=== PATIENT | female | born 1960 | race African-American/Black ===

== ENCOUNTER 2016-09-06 13:14 | Emergency (ER) | payer OTHER ==
[~2016-09-06] VITALS: Ht 152.4 cm; Wt 98.4 kg
[~2016-09-06 13:14] MED LIST: ALBU2.5V14 IH; BENZ200C39 PO; CETI10CA PO; CHOL1CRY3 MC; FERR325T3 PO; FLUT12AE2 IH; GABA300S PO; GLIP-24 PO; HYDR-2666 PO; HYDR-971 PO; IBUP-1007 PO; LEVO50TA5 PO; LISI-334 PO; METF500T4 PO; METH-38 PO; MOME17SP NS; MONT10TA6 PO; MULT-212 PO; OMEP20CA5 PO; OXYB5SYR2 PO; PANT40TA5 PO; TRAM50TA PO; TRIA1TAB3 PO
[2016-09-06] MEDS ORDERED: KETOROLAC TROMETHAMINE 60 MG/2 ML INJ. IM ONE (13:45)
[2016-09-06] MEDS ORDERED: LIDO700A4 TP (13:55)
--- NOTE | 2016-09-06 13:55 | PHYS DOC ---
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 Patient states the pain starts from the knee and radiates to her low back. Patient denies any trauma. She states she follows up with Dr. Valera who has her on gabapentin, muscle relaxers 750 mg, and ibuprofen 600 mg. Patient denies any trauma. Denies any loss of bowel bladder function. PCP Dr. Valera Review of Systems Review of Systems Constitutional: Denies fever or chills [] Eyes: Denies change in visual acuity, redness, or eye pain [] HENT: Denies nasal congestion or sore throat [] Musculoskeletal: Exacerbation of chronic right leg pain Integument: Denies rash or skin lesions [] Neurologic: Denies headache, focal weakness or sensory changes [] Endocrine: Denies polyuria or polydipsia [] Current Medications Current Medications Current Medications Medications (Trade) Dose Ordered Sig/Alma Start Time Stop Time Status Last Admin Dose Admin Ketorolac Tromethamine (Toradol Im) 60 mg 1X ONCE 09/06/16 13:45 09/06/16 13:47 DC Allergies Allergies Allergies Coded Allergies Type Severity Reaction Last Updated Verified [place] And Derivatives Allergy Intermediate Swelling 08/19/13 Yes Egg Derived Allergy Intermediate 10/26/14 Yes Penicillins Allergy Intermediate 10/26/14 No fish derived Allergy Intermediate swelling 08/26/13 Yes peanut Allergy Intermediate 10/26/14 No shellfish derived Allergy Intermediate Itching and Swelling 08/19/13 Yes Physical Exam Physical Exam Constitutional: Well developed, well nourished, no acute distress, non-toxic appearance. [] HENT: Normocephalic, atraumatic, bilateral external ears normal, oropharynx moist, no oral exudates, nose normal. [] Eyes: PERRLA, EOMI, conjunctiva normal, no discharge. [] Skin: Warm, dry, no erythema, no rash. [] Back: No tenderness, no CVA tenderness. [] Extremities: Diffuse musculoskeletal tenderness to the right thigh, no cyanosis , no clubbing, ROM intact, no edema. [] Neurologic: Alert and oriented X 3, normal motor function, normal sensory function, no focal deficits noted. [] Psychologic: Affect normal, judgement normal, mood normal. [] EKG EKG [] Radiology/Procedures Radiology/Procedures [] Course & Med Decision Making Course & Med Decision Making Pertinent Labs and Imaging studies reviewed. (See chart for details) Patient is in the ED with exacerbation of chronic pain to the right thigh. She was discharged with Lidoderm patches. She already has gabapentin, I suspect Robaxin 750 mg from the conversation we had, and ibuprofen. She has good follow- up. Recommended she sees her doctor in one week. Dragon Disclaimer Dragon Disclaimer This electronic medical record was generated, in whole or in part, using a voice recognition dictation system. Departure Departure Impression: Primary Impression: Lower extremity pain, right Disposition: HOME, SELF-CARE Condition: STABLE Referrals: OMAYRA SINHA MD (PCP) Follow-up with your own doctor in the next 7 days Patient Instructions: Musculoskeletal Pain Additional Instructions: You were seen for chronic lower leg pain. Continue taking your prescribed medicines as ordered. Contact your doctor and follow-up in the next 7 days. Use the pain patch as ordered. Scripts Lidocaine (LIDODERM) 700 Mg Adh..patch 1 PATCH TP DAILY, #30 PATCH 1 Refill Prov: RUDY CEBALLOS APRN 09/06/16 RUDY CEBALLOS APRN September 06, 2016 13:55
[2016-09-06 14:05] VITALS: BP 130/61
[2016-09-06] MEDS ORDERED: MORPHINE SULFATE 10 MG/ML VIAL. IM ONE (14:30)
== END 2016-09-06 14:50 | disposition home or self-care (01) ==
LOC: ER 13:14
DX: G89.29 Other chronic pain (principal); M79.604 Pain in right leg; J45.909 Unspecified asthma, uncomplicated; K21.9 Gastro-esophageal reflux disease without esophagitis; I10 Essential (primary) hypertension; E11.9 Type 2 diabetes mellitus without complications; Z91.012 Allergy to eggs; Z91.010 Allergy to peanuts; Z88.0 Allergy status to penicillin; Z91.013 Allergy to seafood; Z91.018 Allergy to other foods
CPT/HCPCS: 99283

== ENCOUNTER 2016-10-30 20:08 | Emergency (ER) | payer OTHER ==
[~2016-10-30] VITALS: Ht 152.4 cm; Wt 100.7 kg
[~2016-10-30 20:08] MED LIST changes: -BENZ200C39 PO; +BENZ200C47 PO; -HYDR-2666 PO; +HYDR-2758 PO; +LIDO700A4 TP
[2016-10-30 20:14] VITALS: BP 180/81
[2016-10-30] MEDS ORDERED: MORPHINE SULFATE 10 MG/ML VIAL. IM ONE (22:00)
[2016-10-30] MEDS ORDERED: predniSONE 20 MG TABLET PO ONE (22:00)
[2016-10-30] MEDS ORDERED: HYDR-971 PO (23:04)
[2016-10-30] MEDS ORDERED: METH4TAB2 PO (23:04)
--- NOTE | 2016-10-30 23:04 | PHYS DOC ---
Past Medical History Past Medical History: Asthma, Diabetes-Type II, Hypertension, Hypothyroid, Other Additional Past Medical Histor: NEUROPATHY,CHRONIC BACK PAIN Past Surgical History: , Other Additional Past Surgical Histo: THYROIDECTOMY Alcohol Use: None Drug Use: None Adult General Chief Complaint Chief Complaint: BACK PAIN - NO INJURY HPI HPI Patient is a 56 year old female who presents with complaint of lower show any pain. Patient states that she has history of sciatica and has been having worsening symptoms over the past 24 hours. Patient states that the pain radiates from her buttock down through her right lower extremity towards her toes. Patient also states that she has noticed swelling in her lower extremities. Pain extends along the posterior aspect of her legs and also on the anterior side. Patient rates pain currently is 10 out of 10. Patient states that she takes gabapentin, ibuprofen, and a muscle relaxant at home, however this has not relieved her symptoms. Patient has history of chronic diabetic neuropathy. Patient denies any fevers, chest pain, shortness of breath, nausea, or vomiting. Patient denies any loss of bowel or bladder control or saddle anesthesia. Patient states that she is having difficulty finding position of comfort but does state that weaning off of her right side seems to help with her symptoms. Review of Systems Review of Systems Constitutional: Denies fever or chills [] Eyes: Denies change in visual acuity, redness, or eye pain [] HENT: Denies nasal congestion or sore throat [] Respiratory: Denies cough or shortness of breath [] Cardiovascular: Denies chest pain or edema [] GI: Denies abdominal pain, nausea, vomiting, bloody stools or diarrhea [] : Denies dysuria or hematuria [] Musculoskeletal: Bilateral lower extremity pain, right greater than left [] Integument: Denies rash or skin lesions [] Neurologic: Neuropathy [] Current Medications Current Medications Current Medications Medications (Trade) Dose Ordered Sig/Alma Start Time Stop Time Status Last Admin Dose Admin Morphine Sulfate 5 mg 1X ONCE 10/30/16 22:00 10/30/16 22:01 DC 10/30/16 22:10 5 MG Prednisone (Prednisone) 50 mg 1X ONCE 10/30/16 22:00 10/30/16 22:01 DC 10/30/16 22:09 50 MG Allergies Allergies Allergies Coded Allergies Type Severity Reaction Last Updated Verified Fish Containing Products Allergy Intermediate 10/30/16 Yes egg Allergy Intermediate 10/30/16 Yes shellfish derived Allergy Intermediate 10/30/16 Yes Physical Exam Physical Exam Constitutional: Alert, afebrile, appears in moderate discomfort [] HENT: Normocephalic, atraumatic, bilateral external ears normal, oropharynx moist, no oral exudates, nose normal. [] Eyes: PERRLA, EOMI, conjunctiva normal, no discharge. [] Neck: Normal range of motion, no tenderness, supple, no stridor. [] Cardiovascular:Heart rate regular rhythm, no murmur [] Lungs & Thorax: Bilateral breath sounds clear to auscultation [] Abdomen: Bowel sounds normal, soft, no tenderness, no masses, no pulsatile masses. [] Skin: Warm, dry, no erythema, no rash. [] Back: No tenderness, no CVA tenderness. [] Extremities: Right-sided posterior tenderness to palpation along thigh and lower leg, no obvious deformities present, no redness or edema present, pulses 2 + distally, foot is warm. [] Neurologic: Alert and oriented X 3, normal motor function, normal sensory function, no focal deficits noted. [] Current Patient Data Vital Signs Vital Signs Date Time Temp Pulse Resp B/P (MAP) Pulse Ox O2 Delivery O2 Flow Rate FiO2 10/30/16 22:10 Room Air 10/30/16 20:14 98.4 74 20 180/81 (114) 99 98.4 Lab Values Laboratory Tests Test 10/30/16 22:07 Glucose (Fingerstick) 221 mg/dL (70-99) H EKG EKG Not performed [] Radiology/Procedures Radiology/Procedures Not performed [] Course & Med Decision Making Course & Med Decision Making Pertinent Labs and Imaging studies reviewed. (See chart for details) The patient's exam showed no appreciable swelling in the lower extremities. Patient's pulses were normal in both feet. The patient's symptoms appear to be an exacerbation of patient's sciatic pain. Patient was given IM morphine and was started on prednisone in the emergency department. On reevaluation, patient states her symptoms are improving at this time. Patient will continue on hydrocodone and Medrol Dosepak for outpatient treatment. Advised patient follow- up in [address] Yates for reevaluation and advised return emergency department for any worsening symptoms. Patient voiced understanding and in agreement with treatment plan. Dragon Disclaimer Dragon Disclaimer This electronic medical record was generated, in whole or in part, using a voice recognition dictation system. Departure Departure Impression: Primary Impression: Sciatica Disposition: 01 HOME, SELF-CARE Condition: IMPROVED Referrals: OMAYRA YATES MD (PCP) Patient Instructions: Sciatica Additional Instructions: Follow-up with Dr. Yates in the next 3 days for reevaluation. Return to emergency department for any worsening symptoms. Scripts Hydrocodone/Apap 5-325 (NORCO 5-325 TABLET) 1 Each Tablet 1-2 TAB PO Q4-6HRS Y for PAIN, #20 TAB Prov: HARJIT PHAN MD 10/30/16 Methylprednisolone (MEDROL) 4 Mg Tab.ds.pk 1 PKG PO UD, #1 PKG Prov: HARJIT PHAN MD 10/30/16 Problem Qualifiers Primary Impression: Sciatica Laterality: right Qualified Codes: M54.31 - Sciatica, right side HARJIT PHAN MD Oct 30, 2016 23:04
== END 2016-10-30 23:11 | disposition home or self-care (01) ==
LOC: ER 20:08 → MERGE 20:08 → ER 23:11
DX: M54.31 Sciatica, right side (principal); G89.29 Other chronic pain; E11.40 Type 2 diabetes mellitus with diabetic neuropathy, unspecified; I10 Essential (primary) hypertension; J45.909 Unspecified asthma, uncomplicated; E89.0 Postprocedural hypothyroidism; Z91.012 Allergy to eggs; Z91.013 Allergy to seafood
CPT/HCPCS: 82962; 96372; 99283; J2270; J7512

== ENCOUNTER → 2016-11-02 | Outpatient (CLI) | payer OTHER ==
[~2016-11-02] MED LIST changes: +METH4TAB2 PO
--- NOTE | 2016-11-02 15:47 | KCIC ---
MR LUMBAR SPINE HISTORY: Acute right knee. Low back pain COMPARISON: CT lumbar spine from October 26, 2014 Technique: Sagittal T2, sagittal STIR, and sagittal T1-weighted images were obtained. Additional axial T1 and T2 weighted imaging was also performed. FINDINGS: There is subtle retrolisthesis of L5 on S1. Alignment is otherwise within normal limits. There is no compression fracture or deformity. Bone marrow signal is within normal limits apart from hemangiomas at L3 T12. The conus terminates normally at the level of L2-L3. Visualized intra-abdominal contents are within normal limits. At L5-S1 there is retrolisthesis of L5 on S1. There is also moderate disc height loss and a broad-based disc protrusion. This causes mass effect upon the descending right S1 nerve probable for right S1 radiculopathy. There is also moderate bilateral neural foraminal narrowing from disc height loss and foraminal extension of the disc. At L4-L5 there is mild disc height loss and a broad-based disc bulge causing mild lateral recess stenosis bilaterally. There is also mild facet arthropathy. The remaining intervertebral disc levels are well maintained. IMPRESSION: Degenerative disc disease greatest at L5-S1 where there is mass effect upon the right S1 nerve in the lateral recess. Correlate for right S1 radiculopathy symptoms. Details as above. Electronically signed by: Jeremias Iglesias MD (11/02/2016 3:44 PM)
== END | disposition home or self-care (01) ==
LOC: KCIC MRI 13:53
PROVIDERS: ATTEND Orthopaedic Surgery
DX: M51.37 Other intervertebral disc degeneration, lumbosacral region (principal); M25.561 Pain in right knee
CPT/HCPCS: 72148

== ENCOUNTER → 2016-11-07 | Outpatient (CLI) | payer OTHER ==
--- NOTE | 2016-11-08 10:56 | KCIC ---
EXAM: Bilateral screening mammogram. HISTORY: 56-year-old female presents for screening mammography. TECHNIQUE: Full-field digital craniocaudal and mediolateral oblique views of both breasts are obtained for evaluation. Computer aided detection with [employer] software version 9.3 was applied. COMPARISON: 06/26/2013 BREAST PARENCHYMAL DENSITY: Level B - Scattered fibroglandular densities. FINDINGS: There is increased nodularity within the 4:00 subareolar aspect of the right breast. There is a stable nodule within the 4:30 o'clock position of the right breast at mid depth. There is no suspicious calcification or architectural distortion within either breast. IMPRESSION: BI-RADS Category 0: Additional imaging needed. RECOMMENDATION: Further evaluation with a right breast sonogram is recommended to assess increasing nodularity within the 4:00 subareolar location. The patient will be contacted to return for additional imaging. If your mammogram demonstrates that you have dense breast tissue, which could hide abnormalities, and if you have other risk factors for breast cancer that have been identified, you might benefit from supplemental screening tests that may be suggested by your ordering physician. Dense breast tissue, in and of itself, is a relatively common condition. This information is not provided to cause undue concern, but rather to raise your awareness and to promote discussion with your physician regarding the presence of other risk factors, in addition to dense breast tissue. A report of your mammography results will be sent to you and your physician. You should contact your physician if you have any questions or concerns regarding this report. Mammography is a sensitive method for finding small breast cancers, but it does not detect them all and is not a substitute for careful clinical examination. A negative mammogram does not negate a clinically suspicious finding and should not result in delay in biopsying a clinically suspicious abnormality. PQRS compliance statement - Patient information was entered into a reminder system with a target due date for the next mammogram. "Our facility is accredited by the [employer] Mammography [employer]." Electronically signed by: Ling Armstrong MD (11/08/2016 10:53 AM) [facility]
== END | disposition home or self-care (01) ==
LOC: KCIC MAMMO 15:29
PROVIDERS: ATTEND Family Medicine
DX: Z12.31 Encounter for screening mammogram for malignant neoplasm of breast (principal)
CPT/HCPCS: G0202; 77067

== ENCOUNTER → 2016-11-12 | Outpatient (CLI) | payer OTHER ==
--- NOTE | 2016-11-12 16:30 | KCIC ---
Right breast ultrasound: Reason for examination: Nodular density on screening mammogram. Comparison to mammographic exam dated 2016. Ultrasound examination of the right breast was performed with attention to the area of mammographic concern in the right axilla. In the 3:00 position 3 cm from the nipple and. Correspond to the area of mammographic concern, there is a 7.7 x 5.4 mm hypoechoic lesion with a slightly lobulated irregular contour. This may represent papilloma. Further evaluation with ultrasound biopsy is recommended. No other focal lesions are seen. No abnormal appearing lymph nodes are seen in the axilla. IMPRESSION: 7.7 x 5.4 mm nodule at the 3:00 position of the right breast. Recommend further evaluation with ultrasound-guided biopsy. BI-RADS Category 4: Suspicious. These findings were discussed with the patient and a message was left for the medical insurance coder of Dr. Yates on 11/12/2016 at 2395. "Our facility is accredited by the [employer] Mammography Program." This patient's information has been entered into a reminder system for the patient to be notified with the results of her examination and a target date for the next mammogram. Electronically signed by: Susan Cevallos MD (11/12/2016 4:27 PM) [facility]
== END | disposition home or self-care (01) ==
LOC: KCIC US 10:07
PROVIDERS: ATTEND Family Medicine
DX: R92.8 Other abnormal and inconclusive findings on diagnostic imaging of breast (principal)
CPT/HCPCS: 76641

== ENCOUNTER → 2016-11-20 | Outpatient (CLI) | payer OTHER ==
[~2016-11-20] VITALS: Ht 152.4 cm; Wt 99.8 kg
[2016-11-20 08:56] VITALS: BP 139/64
--- NOTE | 2016-11-20 12:09 | RAD ---
Indication suspect mass right breast. Note is made of the screening examination of the breasts 11/07/2016 and the diagnostic examination targeted to the right breast 11/12/2016. Image guided biopsy was discussed with the patient. The risks of infection and bleeding were outlined. Small possibility of pneumothorax was also discussed. The patient understood the risks associated with the procedure and wished to proceed. The well-defined mass at 3:00 position of the right breast, approximately 2 cm from the nipple, was reproduced. [employer] ultrasound images were saved. The skin was prepped and draped in the routine fashion. Local anesthesia was accomplished with 1% lidocaine. Under ultrasound guidance a coaxial 14-gauge biopsy system was utilized. 4 core samples were obtained. (After the second sample the target mass was essentially gone suggesting that much of target mass with cystic in nature). At the completion of the biopsy procedure a clip was placed at the biopsy site. The retrieved tissue was placed in formaldehyde and transferred to pathology. The patient tolerated the procedure unremarkably. At the completion of the procedure and the clip deployment the patient was transferred to a dedicated mammographic suite and conventional mammographic images were obtained. Clip is noted in the periareolar position of the breast and appears appropriately positioned. The biopsy site was dressed in the routine fashion and the patient discharged with appropriate instructions. IMPRESSION: Successful ultrasound-guided biopsy of mass in the right breast MTDD
--- NOTE | 2016-11-21 16:32 | PATHOLOGY ---
PATHOLOGY REPORT * * * * * * * * FINAL DIAGNOSIS: Breast tissue, right breast needle biopsies: - Fibrocystic changes with the following components: - Cystic change. - Apocrine metaplasia. - Stromal fibrosis. - Mild duct ectasia. (JPM:linh; 11/21/2016) COMMENT: There is no evidence of malignancy. REPORT ELECTRONICALLY SIGNED BY: Ty Faustin M.D. DATE/TIME: 11/21/2016 16:32 * * * * * * * * GROSS PATHOLOGY: Received in formalin labeled "Sg Mcbride, right breast," are multiple needle cores of yellow-luque fibrofatty tissue measuring 0.5 x 0.4 x 0.2 cm in aggregate dimensions. The tissue is submitted in its entirety in cassette A1. The cold ischemic time is 5minutes. The total formalin fixation time is 12 hours and 5 minutes. (JPM; 11/20/16) INITIAL CPT CODE(S): A; 47494 Professional services performed by [facility] [place] [address] Technical services performed by [facility] at [address] [place] [address] [address], [place] [address]. SPECIMEN(S) RECEIVED: A.Right breast samples CLINICAL HISTORY: Right breast mass PATIENT: SG MCBRIDE /AGE: 206/24/1960 (Age: 56) PATIENT #: [id number] ALT CASE #: SPECIMEN COLLECTION DATE: 11/20/2016 SPECIMEN RECEIVED DATE: 11/20/2016 [facility] - [address] [place] [address] - PHONE: [phone] * * * END OF REPORT * * *
== END | disposition home or self-care (01) ==
LOC: US 08:44
PROVIDERS: ATTEND Family Medicine
DX: N63 Unspecified lump in breast (principal)
CPT/HCPCS: 19081; 76942; C1713; G0206; 88305; 77065

== ENCOUNTER 2019-07-03 11:53 | Emergency (ER) | payer MEDICAID, OTHER ==
[~2019-07-03] VITALS: Ht 152.4 cm; Wt 93.7 kg
[~2019-07-03 11:53] MED LIST changes: -HYDR-2758 PO; +HYDR-2761 PO; +HYDR-3164 PO; -HYDR-971 PO; +METF500T16 PO; -METF500T4 PO; +MONT10TA49 PO; -MONT10TA6 PO; -PANT40TA5 PO; +PANT40TA77 PO
[2019-07-03] MEDS ORDERED: cloNIDine HCL 0.1 MG TABLET PO ONE (12:45)
--- NOTE | 2019-07-03 13:16 | RAD ---
CHEST PA LATERAL History: Cough. Asthma history. Comparison: None. Findings: Patchy bibasilar opacities. No pleural effusion. No pneumothorax. Normal heart size. Impression: 1. Patchy bibasilar opacities, most likely atelectasis. Electronically signed by: Remigio Alejo DO (07/03/2019 1:14 PM) [id number]
[2019-07-03 13:21] LABS: INFLUENZA A PATIENT POSITIVE (NEGATIVE); INFLUENZA B PATIENT NEGATIVE (NEGATIVE)
--- NOTE | 2019-07-03 13:31 | PHYS DOC ---
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 Patient reports being exposed to influenza. Grandson is at [facility] admitted for influenza. Review of Systems Review of Systems Constitutional: Reports fever Eyes: Denies change in visual acuity, redness, or eye pain [] HENT: Reports nasal congestion denies sore throat [] Respiratory: Reports cough, denies shortness of breath [] Cardiovascular: No additional information not addressed in HPI [] GI: Denies abdominal pain, nausea, vomiting, bloody stools or diarrhea [] : Denies dysuria or hematuria [] Musculoskeletal: Denies back pain or joint pain [] Integument: Denies rash or skin lesions [] Neurologic: Denies headache, focal weakness or sensory changes [] All other systems were reviewed and found to be within normal limits, except as documented in this note. Current Medications Current Medications Current Medications Medications (Trade) Dose Ordered Sig/Alma Start Time Stop Time Status Last Admin Dose Admin Clonidine HCl (Catapres) 0.2 mg 1X ONCE 07/03/19 12:45 07/03/19 12:47 DC 07/03/19 12:58 0.2 MG Allergies Allergies Allergies Coded Allergies Type Severity Reaction Last Updated Verified [place] And Derivatives Allergy Intermediate Swelling 08/19/13 Yes Egg Derived Allergy Intermediate 10/26/14 Yes Fish Containing Products Allergy Intermediate 10/31/16 Yes Penicillins Allergy Intermediate 10/26/14 No egg Allergy Intermediate 10/31/16 Yes fish derived Allergy Intermediate swelling 08/26/13 Yes peanut Allergy Intermediate 10/26/14 No shellfish derived Allergy Intermediate Itching and Swelling 08/19/13 Yes Physical Exam Physical Exam Constitutional: Well developed, well nourished, no acute distress, non-toxic appearance. [] HENT: Normocephalic, atraumatic, bilateral external ears normal, oropharynx moist, no oral exudates, nose normal. [] Eyes: PERRLA, EOMI, conjunctiva normal, no discharge. [] Neck: Normal range of motion, no tenderness, supple, no stridor. [] Cardiovascular:Heart rate regular rhythm, no murmur [] Lungs & Thorax: Bilateral breath sounds clear to auscultation [] Abdomen: Bowel sounds normal, soft, no tenderness, no masses, no pulsatile masses. [] Skin: Warm, dry, no erythema, no rash. [] Back: No tenderness, no CVA tenderness. [] Extremities: No tenderness, no cyanosis, no clubbing, ROM intact, no edema. [] Neurologic: Alert and oriented X 3, normal motor function, normal sensory function, no focal deficits noted. [] Psychologic: Affect normal, judgement normal, mood normal. [] Current Patient Data Vital Signs Vital Signs Date Time Temp Pulse Resp B/P (MAP) Pulse Ox O2 Delivery O2 Flow Rate FiO2 07/03/19 12:58 72 175/78 07/03/19 12:23 98.5 20 96 Room Air 98.5 Lab Values Laboratory Tests Test 07/03/19 12:31 Influenza Type A Antigen Positive (NEGATIVE) Influenza Type B Antigen Negative (NEGATIVE) EKG EKG [] Radiology/Procedures Radiology/Procedures []PROCEDURE: CHEST PA & LATERAL CHEST PA LATERAL History: Cough. Asthma history. Comparison: None. Findings: Patchy bibasilar opacities. No pleural effusion. No pneumothorax. Normal heart size. Impression: 1. Patchy bibasilar opacities, most likely atelectasis. Electronically signed by: Remigio Taylor DO (07/03/2019 1:14 PM) [id number] DICTATED and SIGNED BY: REMIGIO TAYLOR DO DATE: 07/03/19 1314 Course & Med Decision Making Course & Med Decision Making Pertinent Labs and Imaging studies reviewed. (See chart for details) This is a 59-year-old female patient presenting to the ED today with flulike symptoms. Positive for influenza A, chest x-ray is negative. Patient has been ill for 3 days. Supportive care measures recommended. Dragon Disclaimer Dragon Disclaimer This electronic medical record was generated, in whole or in part, using a voice recognition dictation system. Departure Departure Impression: Primary Impression: Influenza Additional Impressions: Fever Cough Disposition: 01 HOME, SELF-CARE Condition: STABLE Referrals: OMAYRA SINHA MD (PCP) follow up in 1-2 weeks Patient Instructions: Cough, Adult, [id number], Fever, Adult, Influenza A (H1N1) Additional Instructions: You tested positive for influenza A. You have been ill for more than 2 days. Supportive care measures are recommended at this point, this includes pushing fluids, taking Tylenol/Motrin for pain or fever, resting, follow-up with your doctor in 1-2 weeks. Problem Qualifiers Additional Impressions: Fever Fever type: unspecified Qualified Codes: R50.9 - Fever, unspecified EDISARUDY APRN Jul 03, 2019 13:31
[2019-07-03 13:48] VITALS: BP 170/73
== END 2019-07-03 13:48 | disposition home or self-care (01) ==
LOC: ER 11:53
DX: J10.1 Influenza due to other identified influenza virus with other respiratory manifestations (principal); R05 Cough; R09.81 Nasal congestion; J45.909 Unspecified asthma, uncomplicated; E11.9 Type 2 diabetes mellitus without complications; K21.9 Gastro-esophageal reflux disease without esophagitis; E03.9 Hypothyroidism, unspecified; I10 Essential (primary) hypertension; I95.89 Other hypotension; Z98.890 Other specified postprocedural states; Z91.018 Allergy to other foods; Z91.013 Allergy to seafood; Z91.010 Allergy to peanuts; Z91.012 Allergy to eggs
CPT/HCPCS: 71046; 87804; 99284

== ENCOUNTER → 2020-12-29 | Day surgery (SDC) | payer OTHER ==
[~2020-12-29] VITALS: Ht 152.4 cm; Wt 81.0 kg
[~2020-12-29] MED LIST changes: +IV RINGERS,LACTATED 1000ML 1,000 ML IV SCH; +LIDOCAINE 2% PF 5 ML VIAL. ONE; -LISI-334 PO; +LISI20TA18 PO; +PROPOFOL 10 MG/ML (20ML) VIAL. IV ONE
[2020-12-29 11:13] VITALS: BP 151/73
--- NOTE | 2020-12-29 12:04 | PREOP HP ---
DATE OF SERVICE: 12/29/2020 REFERRING PHYSICIAN: Khalida Yates MD PRIMARY CARE PHYSICIAN: Khalida Yates MD REASON FOR PROCEDURE: Colorectal cancer screening and dysphagia. HISTORY OF PRESENT ILLNESS: This is a 60-year-old female who presents for dysphagia and colorectal cancer screening. She denies a family history of colon cancer and reports 1-2 stools a day. ALLERGIES: MAR reviewed. PAST MEDICAL HISTORY: Reflux. FAMILY HISTORY: Unknown. SOCIAL HISTORY: She denies tobacco, alcohol or IV drug abuse. MEDICATIONS: MAR reviewed. REVIEW OF SYSTEMS: A 13-point review of systems was done and is positive as per HPI, otherwise negative. PHYSICAL EXAMINATION: GENERAL: She is a well-developed, well-nourished female in no apparent distress. HEENT: Oropharynx is clear. CARDIOVASCULAR: S1, S2. LUNGS: Clear. ABDOMEN: Normoactive bowel sounds. Soft, nontender, nondistended. EXTREMITIES: No edema. NEUROLOGICAL: Alert and oriented x 3. ASSESSMENT AND PLAN: 1. Dysphagia. The risks and benefits of upper endoscopy were explained. She has agreed to proceed. 2. Colon cancer screening. The risks and benefits of the procedure including bleeding, perforation nondiagnosis and sedation have been explained and she has agreed to proceed. Thank you for allowing me to participate in the care of this patient. LUDIN MEDINA: Stoney TID: [id number]
[2020-12-29 12:31] VITALS: BP 141/77
--- NOTE | 2020-12-30 16:11 | PATHOLOGY ---
[facility] Accession Number: [id number] . 01 Material submitted: . PART A: small bowel - SMALL BOWEL BIOPSY PART B: stomach - ANTRUM BODY BIOPSY PART C: esophagus - DISTAL ESOPHAGUS BIOPSY. Modifiers: distal PART D: esophagus - MID ESOPHAGEAL BIOPSY. Modifiers: mid . 01 Clinical history: . REFLUX, DYSPHAGIA, SCREENING, GERD, VOMITING EGD/COLON . 02 Diagnosis: A. Small bowel biopsy: - No diagnostic abnormalities. . B. Gastric biopsy, gastric antrum and gastric body: - Chronic gastritis, mild. . C. Esophageal biopsy, distal esophagus: - Reflux esophagitis. . D. Esophageal biopsy, middle esophagus: - Segments of mildly hyperplastic squamous esophageal mucosa showing focal chronic inflammation. (JPM:linh; 12/30/2020) [facility] 12/30/2020 1521 Local . 02 Comment: Sections of the small bowel biopsy reveal segments of duodenal and small intestine mucosa. Where best oriented, the mucosal villi show no sprue-like changes or significant inflammatory changes. . Sections of the gastric biopsy reveal segments of gastric antral and gastric body mucosa showing congestion and mild chronic inflammation. A properly controlled immunoperoxidase stain for Helicobacter is negative for Helicobacter organisms. . Sections of the distal esophageal biopsy reveal a segment of tangentially oriented hyperplastic squamous esophageal mucosa and segments of gastric mucosa showing mild to moderate chronic inflammation. The findings are consistent with reflux esophagitis. There is no evidence of Goodman's change, dysplasia, or malignancy. . Sections of the middle esophageal biopsy reveal segments of mildly hyperplastic squamous esophageal mucosa showing focal chronic inflammation. The findings are suggestive of reflux changes. There is no evidence of Goodman's change, dysplasia, or malignancy. (JPM:linh; 12/30/2020) . Special stain performed: Immunoperoxidase stain for Helicobacter on B1 . 02 Electronically signed: . Ty Faustin MD, Pathologist NPI- [id number] . 01 Gross description: . A. The specimen is received in formalin, labeled "Mcbride, Paola, small bowel BX". Received are 4 segments of pale pena tissue ranging in size from 0.3 to 0.5 cm in maximum dimensions. The specimen is submitted entirely in cassette A1. . B. The specimen is received in formalin, labeled "Mcbride, Paola, antrum and body". Received are 4 segments of pale pena tissue ranging in size from 0.2 to 0.5 cm in maximum dimensions. The specimen is submitted entirely in cassette B1. . C. The specimen is received in formalin, labeled "Mcbride, Paola, distal esophagus BX". Received are 4 segments of pale pena tissue ranging in size from 0.3 to 0.5 cm in maximum dimensions. The specimen is submitted entirely in cassette C1. . D. The specimen is received in formalin, labeled "Mcbride, Paola, mid esophageal BX". Received are 2 segments of pale pena tissue ranging in size from 0.3 to 0.4 cm in maximum dimensions. The specimen is submitted entirely in cassette D1.([facility]; 12/29/2020) [facility] 12/30/2020 09 Local . 02 Pathologist provided ICD-10: K29.50, K21.00, K20.90 . 02 CPT . 396859, 357160, 120650, 586261, [id number] Specimen Comment: A courtesy copy of this report has been sent to [phone], [phone] Specimen Comment: [id number] Specimen Comment: Report sent to / DR SINHA Performed at: 01 [facility] [address], [place], [place] [id number] MD Luis Espino MD Phone: [phone] Performed at: 02 [facility] [address], [place] [id number] MD Ty Faustin MD Phone: [phone]
== END | disposition home or self-care (01) ==
LOC: ENDOS 11:00
PROVIDERS: ATTEND Internal Medicine Gastroenterology
DX: K59.00 Constipation, unspecified (principal); K92.1 Melena; K64.0 First degree hemorrhoids; K57.30 Diverticulosis of large intestine without perforation or abscess without bleeding; K63.89 Other specified diseases of intestine; K31.89 Other diseases of stomach and duodenum; R13.10 Dysphagia, unspecified; K44.9 Diaphragmatic hernia without obstruction or gangrene; K21.00 Gastro-esophageal reflux disease with esophagitis, without bleeding; K29.50 Unspecified chronic gastritis without bleeding; I10 Essential (primary) hypertension; E78.00 Pure hypercholesterolemia, unspecified; J45.909 Unspecified asthma, uncomplicated; E11.9 Type 2 diabetes mellitus without complications; M19.90 Unspecified osteoarthritis, unspecified site; Z79.899 Other long term (current) drug therapy; Z79.84 Long term (current) use of oral hypoglycemic drugs; Z98.890 Other specified postprocedural states; Z98.51 Tubal ligation status; Z88.0 Allergy status to penicillin; Z88.1 Allergy status to other antibiotic agents; Z88.5 Allergy status to narcotic agent; Z91.013 Allergy to seafood; Z88.8 Allergy status to other drugs, medicaments and biological substances; Z91.040 Latex allergy status
CPT/HCPCS: 43239; 43450; 45378; 88305; 88342; J2704

== ENCOUNTER → 2021-01-31 | Outpatient (CLI) | payer OTHER ==
[2020-12-29 12:31] VITALS: BP 141/77
[~2021-01-31] MED LIST changes: -IV RINGERS,LACTATED 1000ML 1,000 ML IV SCH; -LIDOCAINE 2% PF 5 ML VIAL. ONE; -PROPOFOL 10 MG/ML (20ML) VIAL. IV ONE
--- NOTE | 2021-01-31 13:57 | RAD ---
01/31/2021 Gastric Emptying Study Indication: Reason: VOMITING, PERSISTENT GERD Procedure: Anterior and posterior projection static images are obtained over the stomach following or al administration of 2 mCi of 99 M technetium sulfur colloid in a solid meal. Time points include an immediate baseline, and 1, 2, 3, and 4 hours post ingestion. Findings: There is progressive emptying of the stomach on sequential images. Percentage retention at... One hour is 67% (normal 34.8-91%). Two hours 40% (normal 2.7-60%). Three hours 38% (normal 0.5-28%). Four hours 1% (normal 0-10%). Impression: Low slightly above normal retention was seen at 3 hours, 4 hour gastric emptying time is normal. Overall the exam is most consistent normal gastric emptying. Consensus Recommendations for Gastric Emptying Scintigraphy: A Joint Report of the [place] [employer] and the Society of Nuclear Medicine: J. Nucl. Med. Technol. July 05 vol. 36 no. 1 44-54 Grading for severity of delayed GE based on the 4-h value: grade 1 (mild): 11?20% retention at 4 h grade 2 (moderate): 21?35% retention at 4 h grade 3 (severe): 36?50% retention at 4 h grade 4 (very severe): >50% retention at 4 h. Electronically signed by: Watson Coates MD (01/31/2021 1:55 PM) [id number]
== END ==
LOC: NM 08:21
PROVIDERS: ATTEND Internal Medicine Gastroenterology
DX: K21.9 Gastro-esophageal reflux disease without esophagitis (principal); R11.10 Vomiting, unspecified
CPT/HCPCS: 78264; A9541